=== PATIENT | female | born 1960 | race Caucasian/White ===

== ENCOUNTER → 2023-11-23 | Outpatient (CLI) | payer SELFPAY ==
--- NOTE | 2023-11-23 13:16 | RAD_ITS ---
STUDY: X-RAY - THORACIC SPINE REASON FOR EXAM: Female, 62 years old. Back pain. TECHNIQUE: 2 view(s) of the thoracic spine were obtained. COMPARISON: None. FINDINGS: Osteopenia. Slight increased kyphosis. Mild thoracolumbar scoliosis. Diffuse intervertebral disc space narrowing with small osteophytes most marked in the lower thoracic spine. Normal soft tissues. RAD/Thoracic Spine 2 Views IMPRESSION: Osteopenia with mild scoliosis, increased kyphosis and diffuse mild spondylosis most marked in the lower thoracic spine. No acute abnormality or erosive changes. Electronically Signed: Calvin Gurrola MD at 9:53 EDT ,
--- NOTE | 2023-11-23 13:20 | RAD_ITS ---
STUDY: X-RAY - CERVICAL SPINE REASON FOR EXAM: Female, 62 years old. Neck pain. TECHNIQUE: 5 view(s) of the cervical spine were obtained. COMPARISON: None FINDINGS: Mild osteopenia. Normal anterior atlantoaxial articulation. Normal odontoid process. Diffuse moderate uncovertebral and facet sclerosis. Intervertebral disc space narrowing at C4-5, C5-6 and C6-7. Anterior bony neural foraminal encroachment at C6-7 bilaterally. Normal soft tissues. RAD/Cerv Spine 4 or 5 Views IMPRESSION: Osteopenia with mild lower cervical spondylosis most marked at C6-7. No acute abnormality or erosive changes. Electronically Signed: Calvin Gurrola MD at 9:52 EDT ,
== END | disposition home or self-care (01) ==
PROVIDERS: PCP Family Medicine; Referring Provider Chiropractor Orthopedic; Visit Provider Chiropractor Orthopedic
DX: M99.01 Segmental and somatic dysfunction of cervical region (principal); M99.02 Segmental and somatic dysfunction of thoracic region
CPT/HCPCS: 72050; 72070